=== PATIENT | male | born 1980 | race African-American/Black ===

== ENCOUNTER 2017-05-17 17:05 | Emergency (ER) | payer SELFPAY ==
[~2017-05-17] VITALS: Ht 170.2 cm; Wt 70.0 kg
[~2017-05-17 17:05] MED LIST: PERM5CRE TOP; Z.0.NO CURRENT MEDS; [UNRECOGNIZED DRUG - OTHER] TOP
[2017-05-17 17:18] VITALS: BP 140/79; PULSE 80; RESP 16; TEMP 98.8; O2SAT 100
[2017-05-17 19:21] LABS: BACTERIA, URINE RARE /hpf; BILIRUBIN, URINE NEG (NEG); BLOOD, URINE MOD (NEG); GLUCOSE,URINE NEG (NEG); KETONE, URINE NEG (NEG); MUCUS URINE FEW /lpf (OCC); NITRITE,URINE NEG (NEG); URINE COLOR YELLOW (YELLW/STRAW); URINE LEUKOCYTE ESTERASE NEG (NEG)
[2017-05-17] MEDS ORDERED: SODIUM CHLOR 0.9% 1000 ML INJ 1,000 ML IV SCH (19:44)
[2017-05-17] MEDS ORDERED: KETOROLAC TROMETHAMINE 30 MG/ML (IVP) VIAL IVP ONE (19:45)
--- NOTE | 2017-05-17 19:51 | PD ---
HPI Chief Complaint: Complaint Time Seen by Provider: 19:33 Travel History International Travel<30 days: No Contact w/Intl Traveler<30days: No Traveled to known affect area: No History of Present Illness HPI 37-year-old male presents for evaluation of left flank pain and hematuria. Symptoms started 5 days ago. He describes it as a sharp pain which is for the most part constant. There is no obvious aggravating or relieving factors. The pain radiates into the left groin and left imani-scrotum region. He endorses occasional hematuria as well. He does note that there is been some white discharge over the past few days as well. He denies any dysuria, nausea or vomiting, abdominal pain, fevers or chills. He reports that he is sexually active with one long-term partner. No history of kidney stones. No other complaints at this time. PFSH Past Medical History Medical History: Denies Significant Hx Diminished Hearing: No Tetanus Vaccination: > 5 Years Influenza Vaccination: No Past Surgical History Surgical History: No Previous Surgery Social History Alcohol Use: Yes (OCCASIONALLY) Tobacco Use: Yes (0.5PPD) Substance Use: Yes (POT OCCASIONALLY) Allergies-Medications (Allergen,Severity, Reaction): Coded Allergies: No Known Allergies (Unverified Allergy, Unknown, 05/17/17) Reported Meds & Prescriptions Reported Meds & Active Scripts Active Ibuprofen 800 Mg Tab 800 Mg PO Q6HR PRN Zofran (Ondansetron HCl) 4 Mg Tab 4 Mg PO Q6HR PRN Flomax (Tamsulosin HCl) 0.4 Mg Cap 0.4 Mg PO HS 7 Days Hydrocodone-Acetaminophen 5-300 Mg Tab 1 Tab PO Q6H PRN Elimite (Permethrin) 5 % Cr 60 Gm TOP DIRECTED PATIENT INSTRUCTIONS: THOROUGHLY MASSAGE ELIMITE (PERMETHRIN) 5% CREAM INTO THE SKIN FROM HEAD TO TOE COVERING ALL EXTERNAL BODY PARTS. THE CREAM SHOULD BE REMOVED BY WASHING (SHOWER OR BATH) 8 TO 14 HOURS AFTER APPLICATION. PATIENTS MAY EXPERIENCE ITCHING AFTER TREATMENT AND IS RARELY A SIGN OF TREATMENT FAILURE. [benadryl itch cream] 0.1 % TOP Q6HPRN Reported No Current Meds (Miscellaneous Medication) Misc Review of Systems Except as stated in HPI: all other systems reviewed are Neg Physical Exam Narrative GENERAL: Well-developed well-nourished male in no acute distress SKIN: Warm and dry. HEAD: Atraumatic. Normocephalic. EYES: Pupils equal and round. No scleral icterus. No injection or drainage. ENT: No nasal bleeding or discharge. Mucous membranes pink and moist. NECK: Trachea midline. No JVD. CARDIOVASCULAR: Regular rate and rhythm. No murmur appreciated. RESPIRATORY: No accessory muscle use. Clear to auscultation. Breath sounds equal bilaterally. GASTROINTESTINAL: Abdomen soft, non-tender, nondistended. Hepatic and splenic margins not palpable. examination reveals circumcised penis, some urethral discharge which is white in color. There is no tenderness to palpation of the testicles or scrotum. No inguinal hernia palpable. MUSCULOSKELETAL: No obvious deformities. NEUROLOGICAL: Awake and alert. No obvious cranial nerve deficits. Motor grossly within normal limits. Normal speech. PSYCHIATRIC: Appropriate mood and affect; insight and judgment normal. Data Data Last Documented VS Vital Signs Date Time Temp Pulse Resp B/P (MAP) Pulse Ox O2 Delivery O2 Flow Rate FiO2 05/17/17 17:18 98.8 80 16 140/79 (99) 100 Orders Orders Urinalysis - C+S If Indicated (05/17/17 17:20) Complete Blood Count With Diff (05/17/17 19:44) Comprehensive Metabolic Panel (05/17/17 19:44) Gc And Chlamydia Pcr (05/17/17 19:44) Ct Abd/Pel W/O Iv Contrast (05/17/17 19:44) Us Testicles W Doppler (05/17/17 19:44) Iv Access Insert/Monitor (05/17/17 19:44) Sodium Chlor 0.9% 1000 Ml Inj (Ns 1000 M (05/17/17 19:44) Ketorolac Inj (Toradol Inj) (05/17/17 19:45) Azithromycin Powd Pack (Zithromax Powd P (05/17/17 21:45) Ceftriaxone Inj (Rocephin Inj) (05/17/17 21:45) Lidocaine 1% Inj (50 Ml) (Xylocaine 1% I (05/17/17 21:45) Lidocaine 1% Inj (Xylocaine 1% Inj) (05/17/17 22:15) Ed Discharge Order (05/17/17 22:46) Labs Laboratory Tests Test 05/17/17 17:40 05/17/17 20:40 Urine Color YELLOW Urine Turbidity CLEAR Urine pH 6.0 Urine Specific [place] 1.015 Urine Protein NEG mg/dL Urine Glucose (UA) NEG mg/dL Urine Ketones NEG mg/dL Urine Occult Blood MOD Urine Nitrite NEG Urine Bilirubin NEG Urine Urobilinogen LESS THAN 2.0 MG/DL Urine Leukocyte Esterase NEG Urine RBC 139 /hpf Urine WBC 3 /hpf Urine Bacteria RARE /hpf Urine Mucus FEW /lpf Microscopic Urinalysis Comment CULT NOT INDICATED White Blood Count 10.9 TH/MM3 Red Blood Count 4.85 MIL/MM3 Hemoglobin 14.4 GM/DL Hematocrit 42.6 % Mean Corpuscular Volume 87.9 FL Mean Corpuscular Hemoglobin 29.7 PG Mean Corpuscular Hemoglobin Concent 33.8 % Red Cell Distribution Width 14.1 % Platelet Count 218 TH/MM3 Mean Platelet Volume 8.8 FL Neutrophils (%) (Auto) 58.0 % Lymphocytes (%) (Auto) 25.9 % Monocytes (%) (Auto) 5.3 % Eosinophils (%) (Auto) 10.7 % Basophils (%) (Auto) 0.1 % Neutrophils # (Auto) 6.3 TH/MM3 Lymphocytes # (Auto) 2.8 TH/MM3 Monocytes # (Auto) 0.6 TH/MM3 Eosinophils # (Auto) 1.2 TH/MM3 Basophils # (Auto) 0.0 TH/MM3 CBC Comment DIFF FINAL Differential Comment Blood Urea Nitrogen 11 MG/DL Creatinine 0.90 MG/DL Random Glucose 78 MG/DL Total Protein 6.9 GM/DL Albumin 3.7 GM/DL Calcium Level 8.4 MG/DL Alkaline Phosphatase 71 U/L Aspartate Amino Transf (AST/SGOT) 14 U/L Alanine Aminotransferase (ALT/SGPT) 18 U/L Total Bilirubin 0.2 MG/DL Sodium Level 140 MEQ/L Potassium Level 4.2 MEQ/L Chloride Level 106 MEQ/L Carbon Dioxide Level 27.2 MEQ/L Anion Gap 7 MEQ/L Estimat Glomerular Filtration Rate 116 ML/MIN [facility] Medical Decision Making Medical Screen Exam Complete: Yes Emergency Medical Condition: Yes Medical Record Reviewed: Yes Differential Diagnosis Ureteral stone, hydronephrosis, urethritis, epididymitis, orchitis, testicular torsion Narrative Course 37-year-old male with left flank pain that radiates into the left hemiscrotum, urethral discharge, hematuria, for 5 days. He was given IV fluids, Toradol. Ultrasound reveals no acute abnormalities. CT abdomen and pelvis reveals a 3 mm left mid ureteral stone. The patient's pain has been quite tolerable during his hospital stay. He will be discharged with a urinary strainer, Flomax, ibuprofen, Lortab, Zofran. Mandatory outpatient referral for outpatient urology follow-up will be placed. Discussed signs and symptoms that would warrant returning to the emergency room. Pending GC results he was given azithromycin and Rocephin. Diagnosis Primary Impression: Ureteral stone Additional Impression: Urethral discharge Additional Instructions: Medication as prescribed. Stay well hydrated. Urinate into a strainer. Follow -up with a urologist, or showcase maker will be contacting you at some point to help facilitate follow-up. Return for any acutely new or worsening symptoms such as intractable pain, intractable nausea and vomiting, fevers. Med/Other Pt SpecificInfo: Prescription(s) given Scripts Ibuprofen (Ibuprofen) 800 Mg Tab 800 MG PO Q6HR Y for PAIN, #40 TAB 0 Refills Prov: Mario Bonner MD 05/17/17 Ondansetron (Zofran) 4 Mg Tab 4 MG PO Q6HR Y for NAUSEA OR VOMITING, #20 TAB 0 Refills Prov: Mario Bonner MD 05/17/17 Tamsulosin (Flomax) 0.4 Mg Cap 0.4 MG PO HS for Manage Prostate Problems for 7 Days, #7 CAP 0 Refills Prov: Mario Bonner MD 05/17/17 Hydrocodone-Acetaminophen (Hydrocodone-Acetaminophen) 5-300 Mg Tab 1 TAB PO Q6H Y for PAIN, #15 TAB 0 Refills Prov: Mario Bonner MD 05/17/17 Disposition: 01 DISCHARGE HOME Condition: Stable Arnoldo Lowe May 17, 2017 19:51
--- NOTE | 2017-05-17 21:13 | RADRPT ---
EXAM DATE/TIME: 05/17/2017 20:09 [facility] COMPARISON: No previous studies available for comparison. INDICATIONS : Scrotal pain. MEDICAL HISTORY : Left scrotal pain. SURGICAL HISTORY : None. ENCOUNTER: Initial ACUITY: 1 day PAIN SCORE: 2/10 LOCATION: Bilateral scrotum. MEASUREMENTS: RIGHT TESTICLE: 4.6 x 3.0 x 2.2cm LEFT TESTICLE: 5.3 x 3.2 x 2.2cm FINDINGS: RIGHT TESTICLE: Homogeneous echotexture without intra or extratesticular mass. Blood flow is symmetric and within no rmal limits. No hydrocele or varicocele. Epididymis is within normal limits. LEFT TESTICLE: Homogeneous echotexture without intra or extratesticular mass. Multiple tiny hyperechogenic foci tomas racteristic of microlithiasis. Blood flow is symmetric and within normal limits. No hydrocele. Epi didymis is within normal limits. Normal posterior vitreous structures lateral in the left hemiscrotu m which may represent varicocele, however, no increased flow seen on color Doppler. SCROTUM: Within normal limits. CONCLUSION: 1. No focal lesions seen in the testicles. Intact flow by color Doppler bilaterally. 2. Probable left varicocele with out significant increased flow on Valsalva. Mike Han MD on May 17, 2017 at 21:10 Board Certified Radiologist. This report was verified electronically.
--- NOTE | 2017-05-17 21:23 | RADRPT ---
EXAM DATE/TIME: 05/17/2017 20:31 [facility] COMPARISON: No previous studies available for comparison. INDICATIONS : Left flank pain. Dysuria and hematuria. ORAL CONTRAST: No oral contrast ingested. RADIATION DOSE: 4.91 CTDIvol (mGy) MEDICAL HISTORY : None SURGICAL HISTORY : None. ENCOUNTER: Initial ACUITY: 4 - 6 days PAIN SCALE: 8/10 LOCATION: Left flank TECHNIQUE: Renal colic protocol. Volumetric scanning of the abdomen and pelvis was performed. Using automated exposure control and adjustment of the mA and/or kV according to patient size, radiation dose was kep t as low as reasonably achievable to obtain optimal diagnostic quality images. DICOM format image da ta is available electronically for review and comparison. FINDINGS: Right side: 4 mm nonobstructing stone in the lower pole collecting system without evidence of hydronephrosis. Th e right ureter is normal in dimension without calcification. Left side: There is a solitary 2 mm calcified stone in the midpole collecting system. There is mild dilation of the collecting system and mild dilation of the left ureter down to the midportion where there is an obstructing stone measuring 3 mm. Bladder: Smooth margins. No calcifications within the lumen. Other: No calcified gallstones. The liver is mildly enlarged measuring 16.5 cm in superior/inferior extent. No dilated loops of small or large bowel. No evidence of free fluid. The visualized lower lungs a re clear. CONCLUSION: 1. 3 mm obstructing stone in the mid left ureter with mild enlargement of the proximal ureter and mil d hydronephrosis. 2. Nonobstructing 4 mm lower pole right renal stone. Mike Han MD on May 17, 2017 at 21:16 Board Certified Radiologist. This report was verified electronically.
[2017-05-17] MEDS ORDERED: LIDOCAINE HCL 1% 50 ML VIAL XX ONE (21:45)
[2017-05-17] MEDS ORDERED: cefTRIAXone 250 MG VIAL IM ONE (21:45)
[2017-05-17] MEDS ORDERED: AZITHROMYCIN PWD FOR SUSP 1 GM PACKET PO ONE (21:45)
[2017-05-17 22:06] LABS: ALBUMIN 3.7 GM/DL (3.4-5.0); ALT (GPT) 18 U/L (12-78); AST (GOT) 14 U/L (15-37); BICARBONATE 27.2 MEQ/L (21.0-32.0); BLOOD UREA NITROGEN 11 MG/DL (7-18); CALCIUM 8.4 MG/DL (8.5-10.1); CHLORIDE 106 MEQ/L (98-107); GLOMERULAR FILTRATION RATE 116 ML/MIN (>89); GLUCOSE,RANDOM 78 MG/DL (74-106); SODIUM (NA) 140 MEQ/L (136-145)
[2017-05-17 22:09] LABS: ALKALINE PHOSPHATASE 71 U/L (45-117); TOTAL BILIRUBIN ADULT 0.2 MG/DL (0.2-1.0); TOTAL PROTEIN 6.9 GM/DL (6.4-8.2)
[2017-05-17] MEDS ORDERED: LIDOCAINE HCL 1% 20 ML VIAL INFIL ONE (22:15)
[2017-05-17 22:30] LABS: AUTOMATED NEUTROPHIL # 6.3 TH/MM3 (1.8-7.7); BASOPHIL % 0.1 % (0.0-2.0); EOSINOPHIL # 1.2 TH/MM3 (0-0.4); EOSINOPHIL % 10.7 % (0.0-4.0); HEMATOCRIT 42.6 % (39.0-51.0); HEMOGLOBIN 14.4 GM/DL (13.0-17.0); LYMPH % 25.9 % (9.0-44.0); LYMPHOCYTE # 2.8 TH/MM3 (1.0-4.8); MEAN CELL VOLUME 87.9 FL (80.0-100.0); MEAN CORPUSCULAR HEMOGLOBIN 29.7 PG (27.0-34.0); MEAN CORPUSCULAR HGB CONC 33.8 % (32.0-36.0); MEAN PLATELET VOLUME 8.8 FL (7.0-11.0); MONO % 5.3 % (0.0-8.0); MONOCYTE # 0.6 TH/MM3 (0-0.9); PLATELET COUNT 218 TH/MM3 (150-450); RED BLOOD COUNT 4.85 MIL/MM3 (4.50-5.90); RED CELL DISTRIBUTION WIDTH 14.1 % (11.6-17.2); WHITE BLOOD COUNT 10.9 TH/MM3 (4.0-11.0)
[2017-05-17] MEDS ORDERED: HYDR-4107 PO (22:53)
[2017-05-17] MEDS ORDERED: ZOFR4TAB PO (22:54)
[2017-05-17] MEDS ORDERED: TAMS5CAP PO (22:54)
[2017-05-17] MEDS ORDERED: IBUP1TAB7 PO (22:54)
== END 2017-05-17 23:51 | disposition home or self-care (01) ==
LOC: NEPD 17:05
DX: N13.2 Hydronephrosis with renal and ureteral calculous obstruction (principal); R36.9 Urethral discharge, unspecified; F17.200 Nicotine dependence, unspecified, uncomplicated; F12.90 Cannabis use, unspecified, uncomplicated
CPT/HCPCS: 74176; 76870; 80053; 81001; 85025; 87491; 87591; 93975; 96361; 96372; 96374; 99285; J0696; J1885; J7030